=== PATIENT | female | born 1965 | race Caucasian/White ===

== ENCOUNTER → 2016-12-07 | Outpatient (CLI) | payer OTHER ==
[~2016-12-07] VITALS: Ht 171.4 cm; Wt 67.1 kg
[~2016-12-07] MED LIST: FISH OIL 1,0001 EAC7 PO; KLONOPIN0.5 M1 PO; MULTIPLE VITAM1 EAC4 PO; TYLENOL ARTHRI650 MG PO
== END | disposition home or self-care (01) ==
LOC: AMB 11:59
PROC: 0DJD8ZZ Inspection of Lower Intestinal Tract, Via Natural or Artificial Opening Endoscopic (ICD-10-PCS; principal; 2016-12-07)
DX: Z12.11 Encounter for screening for malignant neoplasm of colon (principal); K64.9 Unspecified hemorrhoids; K21.9 Gastro-esophageal reflux disease without esophagitis; I49.9 Cardiac arrhythmia, unspecified
CPT/HCPCS: J2250